=== PATIENT | female | born 1970 | race African-American/Black ===

== ENCOUNTER 2021-05-27 12:15 | Emergency (ER) | payer SELFPAY ==
[~2021-05-27] VITALS: Ht 160 cm; Wt 76.4 kg
[2021-05-27 12:22] VITALS: BP 166/109
--- NOTE | 2021-05-27 12:56 | ED.ADGEN ---
Past Medical History Past Surgical History: No Surgical History General Adult EDM: Chief Complaint: Toothache HPI: HPI: Patient is a 50 year old female coming in for worsening left upper tooth pain. Patient states she has dental caries there has been gradually getting worse. Has pain extending to her face and jaw. Denies any fevers. Patient states that she has recently lost her insurance and has not been able to get into see a dentist. Denies any prior history of dental infections Review of Systems: Review of Systems: All other systems within normal limits except for as noted in the HPI Current Medications: Current Medications Medications (Trade) Dose Ordered Sig/Bijal Start Time Stop Time Status Last Admin Dose Admin Amoxicillin (Amoxil) 500 mg 1X ONCE 05/27/21 13:15 05/27/21 12:55 DC Amoxicillin/ Clavulanate Potassium (Augmentin 875/ 125mg) 1 tab 1X ONCE 05/27/21 13:00 05/27/21 13:01 DC 05/27/21 13:04 1 TAB Benzocaine (Hurricaine One) 1 spray 1X ONCE 05/27/21 12:45 05/27/21 12:46 DC 05/27/21 13:04 1 SPRAY Ketorolac Tromethamine (Toradol Im) 60 mg 1X ONCE 05/27/21 12:45 05/27/21 12:46 DC 05/27/21 13:04 60 MG Oxycodone/ Acetaminophen (Percocet 7.5/ 325) 1 tab 1X ONCE 05/27/21 13:15 05/27/21 13:16 DC 05/27/21 13:03 1 TAB Allergies: Allergies: Allergies Coded Allergies Type Severity Reaction Last Updated Verified No Known Drug Allergies 05/27/21 No Physical Exam: PE: Constitutional: Well developed, well nourished, no acute distress, non-toxic appearance. [] HENT: Normocephalic, atraumatic, bilateral external ears normal, oropharynx moist, no oral exudates, nose normal. [] Eyes: PERRLA, EOMI, conjunctiva normal, no discharge. [] Neck: Normal range of motion, no tenderness, supple, no stridor. [] Cardiovascular:Heart rate regular rhythm, no murmur [] Lungs & Thorax: Bilateral breath sounds clear to auscultation [] Abdomen: Bowel sounds normal, soft, no tenderness, no masses, no pulsatile masses. [] Skin: Warm, dry, no erythema, no rash. [] Back: No tenderness, no CVA tenderness. [] Extremities: No tenderness, no cyanosis, no clubbing, ROM intact, no edema. [] Neurologic: Alert and oriented X 3, normal motor function, normal sensory function, no focal deficits noted. [] Psychologic: Affect normal, judgement normal, mood normal. [] Current Patient Data: Vital Signs: Vital Signs Date Time Temp Pulse Resp B/P (MAP) Pulse Ox O2 Delivery O2 Flow Rate FiO2 05/27/21 13:03 20 99 Room Air 05/27/21 12:22 97.9 99 166/109 (128) 97.9 EKG: EKG: [] Heart Score: C/O Chest Pain: No Risk Factors: Risk Factors: DM, Current or recent (<one month) smoker, HTN, HLP, family history of CAD, obesity. Risk Scores: Score 0 - 3: 2.5% MACE over next 6 weeks - Discharge Home Score 4 - 6: 20.3% MACE over next 6 weeks - Admit for Clinical Observation Score 7 - 10: 72.7% MACE over next 6 weeks - Early Invasive Strategies Radiology/Procedures: Radiology/Procedures: [] Course & Med Decision Making: Course & Med Decision Making Pertinent Labs and Imaging studies reviewed. (See chart for details) [] Dragon Disclaimer: Dragon Disclaimer: This electronic medical record was generated, in whole or in part, using a voice recognition dictation system. Departure Departure Impression: Primary Impression: Pain, dental Disposition: HOME / SELF CARE / HOMELESS Condition: STABLE Patient Instructions: Dental Abscess Scripts Amoxicillin/Potassium Clav (AMOX TR-K CLV 875-125 MG TAB) 1 Each Tablet 1 TAB PO BID for antibiotic for 10 Days, #20 TAB Prov: ORLY GAMA MD 05/27/21 Hydrocodone Bit/Acetaminophen (HYDROCODONE-APAP 5-325 ) 1 Tab Tablet 0.5-1 TAB PO PRN Q6HRS PRN for PAIN, #15 TAB 0 Refills Prov: ORLY GAMA MD 05/27/21 ORLY GAMA MD May 27, 2021 12:55
[2021-05-27] MEDS: oxyCODONE/APAP 7.5/325 1 TAB TABLET PO ONE (13:03)
[2021-05-27] MEDS: AMOXICILLIN/K CLAV 875/125MG TABLET. PO ONE (13:04)
[2021-05-27] MEDS: BENZOCAINE ONE 20% MUCOSAL SPRAY. MM (13:04)
[2021-05-27] MEDS: KETOROLAC 60 MG/2 ML VIAL. IM ONE (13:04)
[2021-05-27] MEDS ORDERED: AMOXICILLIN 250 MG CAPSULE. PO ONE (13:15)
[2021-05-27] MEDS ORDERED: AMOX1TAB11 PO (13:54)
[2021-05-27] MEDS ORDERED: HYDR-2761 PO (13:54)
== END 2021-05-27 14:56 | disposition home or self-care (01) ==
LOC: ER 12:15
DX: K08.89 Other specified disorders of teeth and supporting structures (principal); R51.9 Headache, unspecified; R68.84 Jaw pain
CPT/HCPCS: 96372; 99284; J1885